=== PATIENT | female | born 1965 | race Caucasian/White ===

== ENCOUNTER → 2016-10-11 | Outpatient (CLI) | payer OTHER ==
--- NOTE | ~2016-10-11 | MY11 ---
[facility] A Service of [facility] RADIOLOGY TEXT RESULTS PATIENT: STEPHEN AMAYA LOCATION: [facility] : [birth year] UNIT #: [id number] AGE: [address]: GRICELDA CLAYTON SEX: F ORDER DR: [id number] [facility] [address] [place], [place] [address] [id number] O MR#: [id number] Acc #: [id number] NAME: STEPHEN AMAYA : 1965 SEX: F STUDY DATE/TIME: 10/11/2016 12:19 UNIT: [facility] ROOM: STUDY DESCRIPTION: MY Mammogram Screening Dig Jas Attending Physician: Gricelda Clayton M.D. Referring Physician: Amisha Lugo A.P.R.N. Ordering Physician: Gricedla Clayton M.D. Primary Care Physician: Amisha Lugo A.P.R.N. MEDICAL IMAGING REPORT This report is preliminary unless electronic signature is present EXAM Bilateral digital screening with CAD 10/11/2016 HISTORY Routine screening. No current complaints. No family history of breast cancer. COMPARISON 04/30/2010. FINDINGS MLO and CC digital views of each breast were obtained. The exam was reviewed with an FDA-approved CAD device. The breasts are dense. There is an oval well-circumscribed nodule in the left upper breast measuring 2.8 cm in diameter. Just anterior to it is an 11 mm nodule. Exaggerated lateral CC views of each breast were also obtained. In the central right breast there is an 18 mm nodule. The prior study showed 2 much larger nodule in the right breast and they have resolved. It is likely that all the visible nodules represent cysts. 12 mm nodule is also suggested in the central right breast. IMPRESSION 1. Based on the appearance of the prior study and the resolution of 2 large masses that were present on that exam, the patient likely has multiple cysts. Today's study shows at least 2 nodules in the upper left breast and 2 in the central to upper right breast measuring up to 2.8 in diameter. These are likely cysts and bilateral breast ultrasound is recommended. 2. Otherwise the study is negative. Patients over the age of 40 are entered into a reminder system with target due date for the next mammogram. A result letter will also be sent to the patient. [facility] A Service of [facility] RADIOLOGY TEXT RESULTS PATIENT: STEPHEN AMAYA LOCATION: [facility] #: [id number] : [birth year] UNIT #: [id number] AGE: [address]: GRICELDA CLAYTON SEX: F ORDER DR: BIRADS: 0 - Need additional imaging evaluation and/or prior mammograms for comparison Dictated by... Roland Chester M.D. THIS IS AN ELECTRONICALLY VERIFIED REPORT Roland Chester M.D. at 10/12/2016 6:03 AM Anny TD: 10/11/2016 17:30 JOB #: [id number] MEDICAL IMAGING REPORT COPY
--- NOTE | ~2016-10-11 | US98 ---
[facility] A Service of [facility] RADIOLOGY TEXT RESULTS PATIENT: STEPHEN AMAYA LOCATION: [facility] : 69 UNIT #: [id number] AGE: [address]: GRICELDA CLAYTON SEX: F ORDER DR: [id number] [facility] [address] [place], [place] [address] [id number] O MR#: [id number] Acc #: [id number] NAME: STEPHEN AMAYA : 1965 SEX: F STUDY DATE/TIME: 10/11/2016 12:31 UNIT: [facility] ROOM: STUDY DESCRIPTION: US Pelvic Non-OB Complete Attending Physician: Gricelda Clayton M.D. Referring Physician: Amisha Lugo A.P.R.N. Ordering Physician: Gricelda Clayton M.D. Primary Care Physician: Amisha Lugo A.P.R.N. MEDICAL IMAGING REPORT This report is preliminary unless electronic signature is present EXAM Transabdominal and transvaginal pelvic ultrasound DATE 10/11/2016 HISTORY 51-year-old female with heavy menses and pelvic pain. Patient states right lower quadrant pain and irregular menses for 6 months. Cycle every 3 weeks. Last menstrual period 1 week ago. Bloating. COMPARISON None FINDINGS Transabdominal imaging was performed for generalized visualization of pelvic structures while transvaginal imaging was performed for more detailed evaluation of the adnexa. Uterus measures 8.9 x 4.5 x 4.8 cm. Endometrial bilayer thickness is within normal limits, 6 mm. No focal endometrial abnormality is seen. An intramural uterine fibroid in the posterior upper uterine segment measures 2.6 x 1.7 x 1.6 cm. The right ovary measures 0.9 x 2.1 x 1.3 cm without cystic or solid abnormality and demonstrates normal color spectral Doppler flow. The left ovary measures 1.8 x 1.9 x 2.3 cm and contains a mildly complex cyst with thin internal septation. This cyst measures 1.1 x 1.2 x 0.9 cm. The left ovary demonstrates normal color and spectral Doppler flow. No pelvic free fluid is identified. IMPRESSION [facility] A Service of [facility] & [facility] RADIOLOGY TEXT RESULTS PATIENT: STEPHEN AMAYA LOCATION: [facility] : [birth year] UNIT #: [id number] AGE: [address]: GRICELDA CLAYTON SEX: F ORDER DR: 1. Benign appearing mildly complex left ovarian cyst with a single thin internal septation measuring 1.2 x 1.1 x 0.9 cm. 2. Normal flow is documented to each ovary. 3. Intramural uterine fibroid measuring up to 2.6 x 1.7 x 1.6 cm. 4. Normal sonographic appearance of the endometrium. Dictated by... Jojo Puga M.D. THIS IS AN ELECTRONICALLY VERIFIED REPORT Jojo Puga M.D. at 10/12/2016 11:56 AM [facility]/roselia TD: 10/11/2016 17:08 JOB #: [id number] MEDICAL IMAGING REPORT COPY
== END | disposition home or self-care (01) ==
LOC: CWCC 11:55
DX: Z12.31 Encounter for screening mammogram for malignant neoplasm of breast (principal); N92.0 Excessive and frequent menstruation with regular cycle; R10.2 Pelvic and perineal pain; N63 Unspecified lump in breast; N83.292 Other ovarian cyst, left side; D25.1 Intramural leiomyoma of uterus
CPT/HCPCS: 76830; 76856; G0202

== ENCOUNTER → 2016-10-11 | Outpatient (CLI) | payer OTHER ==
--- NOTE | ~2016-10-11 | CR63 ---
[facility] A Service of [facility] RADIOLOGY TEXT RESULTS PATIENT: STEPHEN AMAYA LOCATION: [facility] : [birth year] UNIT #: [id number] AGE: [address]: Amisah Lugo SLATE SPLITTER SEX: F ORDER DR: [id number] [facility] [address] [place], [place] [address] [id number] O MR#: [id number] Acc #: [id number] NAME: STEPHEN AMAYA : 1965 SEX: F STUDY DATE/TIME: 10/11/2016 13:09 UNIT: [facility] ROOM: STUDY DESCRIPTION: CR Chest 2 View Attending Physician: Amisha Lugo A.P.R.N. Ordering Physician: Amisha Lugo A.P.R.N. Primary Care Physician: Amisha Lugo A.P.R.N. MEDICAL IMAGING REPORT This report is preliminary unless electronic signature is present EXAM PA and lateral chest INDICATION 51-year-old female with history of right-sided chest pain for 6 months off and on. COMPARISON No comparisons. FINDINGS The lungs are well-expanded. There is no airspace infiltrate. There are scattered granulomatous calcifications. Heart size normal. Visualized osseous structures are unremarkable. IMPRESSION No active disease. Dictated by... Asad Kolb M.D. THIS IS AN ELECTRONICALLY VERIFIED REPORT Asad Kolb M.D. at 10/12/2016 4:41 PM ESPINOZA/elsa TD: 10/11/2016 16:19 JOB #: [id number] MEDICAL IMAGING REPORT COPY
== END | disposition home or self-care (01) ==
LOC: CRAD 11:56
DX: R07.9 Chest pain, unspecified (principal)
CPT/HCPCS: 71020

== ENCOUNTER → 2016-11-28 | Outpatient (CLI) | payer OTHER ==
[2016-11-28 20:41] LABS: THYROID STIMULATING HORMONE 0.5 uIU/ml (0.34-5.60)
[2016-11-28 20:46] LABS: FREE T3 3.4 pg/mL (2.5-3.9)
[2016-11-28 20:47] LABS: FREE THYROXIN (T4) 0.78 ng/dL (0.58-1.64)
== END | disposition home or self-care (01) ==
LOC: CLAB 19:34
PROVIDERS: Otolaryngology
DX: E03.8 Other specified hypothyroidism (principal)
CPT/HCPCS: 36415; 84439; 84443; 84481; 86376